=== PATIENT | female | born 1945 | race Caucasian/White ===

== ENCOUNTER → 2017-03-14 | Outpatient (CLI) | payer OTHER ==
[~2017-03-14] MED LIST: ACET-1257; CYAN10005 PO; DULO60CA44 PO; ERGO500037 PO; FERR1TAB13 PO; FURO-85 PO; LISI-729 PO; MULT-506 PO; RANI300T2 PO
--- NOTE | 2017-03-14 12:21 | DIAGNOSTIC IMAGING REPORT ---
L-SPINE MIN 4 VIEWS ROUTINE CLINICAL HISTORY: Lumbago. COMPARISON: None FINDINGS: Left upper quadrant and pelvic surgical clips and bowel anastomoses are noted. Note is made of a possible left lower quadrant ostomy. There is mild dextroscoliosis of the lumbar spine. An L1 vertebroplasty is noted. There is 3 mm anterolisthesis of L4 and L5. No additional lumbar spine compression fractures are present. There is moderate disc space narrowing with osteophytosis and vacuum disc phenomenon at L5-S1. There is moderate multilevel facet arthrosis. Suspected calcified granulomas within the spleen are noted. IMPRESSION: 1. No acute lumbar spine fracture. 2. Status post L1 vertebroplasty. 3. Moderate multilevel facet arthrosis and moderate degenerative disc at L5-S1. 4. Mild dextroscoliosis of the lumbar spine. Electronically signed by: Anil Olsen M.D. 03/14/2017 12:20 PM Dictated Date/Time: 03/14/2017 12:17 PM
== END | disposition home or self-care (01) ==
LOC: C.RADBC 11:56
PROVIDERS: ATTEND Physician Assistant Medical
DX: M54.5 Low back pain (principal)